=== PATIENT | female | born 1970 | race Caucasian/White ===

== ENCOUNTER 2020-09-26 03:18 | Emergency (ER) | payer OTHER ==
[2020-09-26 04:34] LABS: HEMOGLOBIN 12.8 gm/dl (12.3-15.3); RED BLOOD COUNT 4.28 M/UL (4.00-5.10)
[2020-09-26 04:50] LABS: BUN/CREATININE RATIO 17 (0-10)
== END 2020-09-26 09:35 | disposition short-term general hospital (02) ==
LOC: ER1 03:18
PROVIDERS: Emergency Medicine
DX: R10.84 Generalized abdominal pain (principal); R11.2 Nausea with vomiting, unspecified
CPT/HCPCS: 80053; 81001; 83605; 83690; 83735; 84703; 85025; 85610; 85730; 93005; 96365; 96368; 96375; 99285; J1644; J2405; J3480; Q9967